=== PATIENT | male | born 1975 | race Caucasian/White ===

== ENCOUNTER → 2022-03-11 | Emergency (ER) | payer OTHER ==
[~2022-03-11] VITALS: Ht 167.6 cm; Wt 104.3 kg
[2022-03-11 22:46] VITALS: BP_SYST 187
--- NOTE | 2022-03-11 23:00 | NUR ---
First contact. Pt c/o palpitations and heart rate of 145bpm noticed on his watch that began at 1430. Pt states that his heart rate slowed down to the 80's but he continued to have palpitations on and off throughout the day. Pt still has palpitations but it is very faint in nature compared to the first initial episode. Denies sob,n/v,chest pain.
--- NOTE | 2022-03-11 23:00 | NUR ---
Placed in room 6 . Placed on manager monitoring, blood pressure machine and pulse oximeter. To gown for exam. Side rails up. Report given to ARELY ALVARENGA(REG).
--- NOTE | 2022-03-11 23:15 | NUR ---
ER at bedside examining patient.
[2022-03-12 00:50] LABS: BASOPHILS % (AUTO) 0.2 % (0.0-2.0); EOSINOPHILS % (AUTO) 0.2 % (0.0-4.0); HEMATOCRIT 42.9 % (36-54); HEMOGLOBIN 14.8 g/dL (14.0-18.0); LYMPHOCYTES # (AUTO) 1.4 K/uL (1.0-5.5); LYMPHOCYTES % (AUTO) 16.5 % (20.5-51.5); MEAN CORPUSCULAR HEMOGLOBIN 29 pg (27-31); MEAN CORPUSCULAR HGB CONC 35 % (32-36); MEAN CORPUSCULAR VOLUME 85 fL (79.0-98.0); MONOCYTES # (AUTO) 0.6 K/uL (0.0-1.0); NEUTROPHILS # (AUTO) 6.7 K/uL (1.8-7.7); NEUTROPHILS % (AUTO) 76.1 % (40.0-70.0); PLATELET COUNT (AUTO) 214 K/uL (130-430); RED BLOOD CELL COUNT(AUTO) 5.06 MIL/uL (4.2-6.2); RED CELL DISTRIBUTION WIDTH 13.4 % (9.0-15.0); WHITE BLOOD COUNT (AUTO) 8.8 K/uL (4.8-10.8)
[2022-03-12 00:58] LABS: ANION GAP 8 (5-15); CALCIUM 10.1 mg/dL (8.4-11.0); CHLORIDE 105 mmol/L (98-107); CREATININE 0.86 mg/dL (0.55-1.30); GLUCOSE 133 mg/dL (70-99); UREA NITROGEN, BLOOD 14 mg/dL (8-21)
[2022-03-12 01:05] LABS: GFR AFRICAN AMERICAN 123 mL/min (>90)
[2022-03-12 01:09] LABS: ALANINE AMINOTRANSFERASE 60 U/L (12-78); ALBUMIN 4.2 g/dL (3.4-4.8); ASPARTATE AMINOTRANSFERASE 27 U/L (10-37); TOTAL BILIRUBIN 0.4 mg/dL (0.0-1.0)
== END | disposition home or self-care (01) ==
LOC: SED 22:32
DX: R00.2 Palpitations (principal); F41.9 Anxiety disorder, unspecified; E78.5 Hyperlipidemia, unspecified; Z79.899 Other long term (current) drug therapy
CPT/HCPCS: 36415; 80053; 83880; 84484; 85025; 93005; 99284